=== PATIENT | female | born 1995 | race Caucasian/White ===

== ENCOUNTER 2016-10-23 09:35 | Emergency (ER) | payer SELFPAY ==
[~2016-10-23] VITALS: Ht 182.9 cm; Wt 113.6 kg
[~2016-10-23 09:35] MED LIST: IBU-8800 MG PO; MEDROL 4MG DOSPA4 MG PO; ULTRAM 50MG TAB50 MG PO
[2016-10-23 09:38] VITALS: BP 138/81; TEMP 99.3
[2016-10-23] MEDS ORDERED: FLEXERIL 1010 MG/TAB PO (10:38)
[2016-10-23 10:50] VITALS: PULSE 71
== END 2016-10-23 10:50 | disposition home or self-care (01) ==
LOC: COL.ER 09:35
DX: S46.912A Strain of unspecified muscle, fascia and tendon at shoulder and upper arm level, left arm, initial encounter (principal); J45.909 Unspecified asthma, uncomplicated